=== PATIENT | female | born 1995 | race Caucasian/White ===

== ENCOUNTER 2024-12-20 17:47 | Inpatient (IN) | payer BC ==
[2024-12-20 18:01] VITALS: BMI 33.5
[2024-12-20] MEDS ORDERED: Diphenoxylate HCl/Atropine Tablet PO PRN (18:21)
[2024-12-20] MEDS ORDERED: Lidocaine 1% (PF) 30 ML VIAL SC PRN (18:21)
[2024-12-20] MEDS ORDERED: Methylergonovine 0.2 MG/ML VIAL IM PRN (18:21)
[2024-12-20] MEDS ORDERED: HYDROcodone/Acetaminophen 5/325 mg Tablet PO PRN (18:21)
[2024-12-20] MEDS ORDERED: Carboprost 250 MCG/ML AMP IM PRN (18:21)
[2024-12-20] MEDS ORDERED: hydrALAZINE 20 MG/ML VIAL SLOW IVP PRN (18:21)
[2024-12-20] MEDS ORDERED: Acetaminophen 500 MG TAB PO PRN (18:21)
[2024-12-20] MEDS ORDERED: Oxytocin 30 units/NS 500 ML 500 ML IV SCH ×2 (18:30)
[2024-12-20 19:46] LABS: Hematocrit 34.1 % (34.9-44.5); Hemoglobin 11.1 g/dL (12.0-15.5); Mean Corpuscular Hemoglobin 27.5 pg (27.0-33.0); Mean Corpuscular Volume 84.4 fL (81.6-98.3); Platelet Count 204 10x3/uL (150-450); Red Blood Cell (RBC) Count 4.04 10x6/uL (3.90-5.03); White Blood Cell (WBC) Count 9.99 10x3/uL (3.5-10.5)
[2024-12-20 20:25] LABS: Syphilis Antibody Index 0.04 S/CO (<1.00 Non-Reactive)
[2024-12-20 20:27] LABS: Hep B Surf Ag - L&D Non-Reactive S/CO (NonReactive)
[2024-12-21] MEDS: fentaNYL/Ropivacaine Epidural 100 ML ONE (09:43)
[2024-12-21] MEDS ORDERED: diphenhydrAMINE 50 MG/ML VIAL IVP PRN (10:06)
[2024-12-21] MEDS ORDERED: Ondansetron PF 4 MG/2 ML Vial IVP PRN ×2 (10:06→16:19)
[2024-12-21] MEDS ORDERED: fentaNYL 2 mcg/Ropivacaine 0.2% Epidural 100 ML CADD EPIDURAL SCH (10:15)
[2024-12-21] MEDS: Ondansetron PF 4 MG/2 ML Vial IVP PRN (10:45)
[2024-12-21] MEDS ORDERED: hydrALAZINE 20 MG/ML VIAL SLOW IVP PRN (16:19)
[2024-12-21] MEDS ORDERED: Bisacodyl 10 MG SUPP PR PRN (16:19)
[2024-12-21] MEDS ORDERED: Preparation H Ointment 28 GM TUBE PR PRN (16:19)
[2024-12-21] MEDS ORDERED: diphenhydrAMINE 25 MG CAP PO PRN (16:19)
[2024-12-21] MEDS ORDERED: Milk Of Magnesia 30 ML UDCUP PO PRN (16:19)
[2024-12-21] MEDS ORDERED: HYDROcodone/Acetaminophen 5/325 mg Tablet PO PRN ×3 (16:19→22:40)
[2024-12-21] MEDS ORDERED: Benzocaine-Menthol 82.5 ML CAN TOP PRN (16:19)
[2024-12-21] MEDS ORDERED: Lanolin Ointment 7 GM TUBE TOP PRN (16:19)
[2024-12-21] MEDS ORDERED: Boostrix 0.5 ML (Tdap) VIAL (>/=7 yrs of age) IM ONE (16:19)
[2024-12-21] MEDS: Ibuprofen 800 MG TAB PO PRN (18:14)
[2024-12-21] MEDS: Ferrous Sulfate 325 MG TAB PO SCH (19:33)
[2024-12-21] MEDS: Acetaminophen 325 MG TAB PO PRN (21:00)
[2024-12-22] MEDS: Ibuprofen 800 MG TAB PO SCH (00:49)
[2024-12-22] MEDS ORDERED: Diphenoxylate HCl/Atropine Tablet PO PRN (10:07)
[2024-12-22] MEDS ORDERED: Measles/Mumps/Rubella 10 MCG/0.5 ML VIAL SC ONE (12:14)
[2024-12-23 08:27] VITALS: BP 108/67; TEMP 98
== END 2024-12-23 12:26 | disposition home or self-care (01) | DRG 807 ==
LOC: CSHLD 17:47 → CSHPP 12-21 20:00
PROVIDERS: ADMIT Student in an Organized Health Care Education/Training Program; ATTEND Student in an Organized Health Care Education/Training Program
PROC: 10E0XZZ Delivery of Products of Conception, External Approach (ICD-10-PCS; principal; 2024-12-21)
PROC: 0U7C7DJ Dilation of Cervix with Intraluminal Device, Temporary, Via Natural or Artificial Opening (ICD-10-PCS; 2024-12-21)
PROC: 10907ZC Drainage of Amniotic Fluid, Therapeutic from Products of Conception, Via Natural or Artificial Opening (ICD-10-PCS; 2024-12-21)
DX: O24.429 Gestational diabetes mellitus in childbirth, unspecified control (principal); Z37.0 Single live birth; Z3A.38 38 weeks gestation of pregnancy; O69.81X0 Labor and delivery complicated by cord around neck, without compression, not applicable or unspecified; O66.0 Obstructed labor due to shoulder dystocia
CPT/HCPCS: 36415; 36416; 51702; 85027; 85461; 86780; 86850; 86870; 86900; 86901; 87340; 90384; 96372; J0595; J2405